=== PATIENT | male | born 1950 | race African-American/Black ===

== ENCOUNTER 2020-01-19 15:01 | Inpatient (IN) ==
[2020-01-19 16:07] LABS: Basophils % 0.3 % (0.0-0.8); Eosinophils # 0.1 10*3/uL (0.0-0.87); Hemoglobin 13.2 GM/DL (14.0-18.0); Immature Granulocytes % 0.3 %; Immature Granulocytes Absolute 0.03 #; Lymphocytes # 1.5 10*3/uL (1.4-4.0); Lymphocytes % 13.7 % (21.2-54.2); Mean Corpuscular HGB Conc 30.7 GM/DL (32-36); Mean Corpuscular Volume 89.2 FL (87-102); Mean Platelet Volume 10.9 FL (9.6-12.0); Monocytes % 5.8 % (1.7-12.7); Neutrophils % 78.9 % (38.7-73.9); Platelet Count 526 T/CUMM (130-400); Red Blood Count 4.82 MC/CUMM (3.8-5.5); White Blood Count 10.9 T/CUMM (4-12)
[2020-01-19 16:13] LABS: INR 1.1; PT Patient Result 11.9 SECS (9.8-11.9); Partial Thromboplastin Time 28.8 SECS (23.9-33.8)
[2020-01-19 16:27] LABS: Albumin 2.7 G/DL (3.4-5.0); Bilirubin,Total 0.4 MG/DL (0.2-1.0); Calcium 10.8 MG/DL (8.5-10.1); Total Protein 10.5 G/DL (6.4-8.3)
[2020-01-19 16:48] LABS: Apearance,Urine CLEAR (Clear); Bilirubin,Urine Negative (Negative); Blood, Urine Negative (Negative); Glucose,Urine (UA) Negative (Negative); Ketones,Urine Negative (Negative); Mucus,Urine Occasional /LPF (Occasional); Nitrite,Urine Negative (Negative); Protein,Urine 30 MG/DL; RBC,Urine 3 /HPF (0-4); Squamous Epithelial Cell,Urine Occasional /HPF (0-10); Urine Color Yellow (Yellow); Urine Specific Gravity 1.023 (1.001-1.035); Urine Urobilinogen < 2.0 EU/DL (0.2-1.0); WBC,Urine 1 /HPF (0-6)
[2020-01-19] MEDS ORDERED: SODIUM CHLORIDE 0.9% 1,000 ML IV STA (17:00)
[2020-01-19 22:22] LABS: Ferritin 620.3 ng/ml (26-388)
[2020-01-19] MEDS ORDERED: AZITHROMYCIN INJ 500 MG in SODIUM CHLORIDE 0.9% 250 ML IV STA (22:55)
[2020-01-19] MEDS ORDERED: methylPREDNISolone SOD SUC 125 MG/2 ML VIAL IV STA (22:55)
[2020-01-19 23:18] LABS: Albumin 2.7 G/DL (3.4-5.0); Bilirubin,Total 1.2 MG/DL (0.2-1.0); Calcium 10.1 MG/DL (8.5-10.1); Osmolality,Calculated 326.9 MOS/KG (273-304); Total Protein 9.8 G/DL (6.4-8.3)
[2020-01-19] MEDS ORDERED: SODIUM CHLORIDE 0.45% 1,000 ML IV SCH (23:45)
[2020-01-19] MEDS ORDERED: GLUCAGON 1 MG VIAL IM PRN (23:49)
[2020-01-19] MEDS ORDERED: DEXTROSE 10% 250 ML BAG IV PRN (23:55)
[2020-01-20] MEDS: cefTRIAXone 1,000 MG in SYRINGE 1 EACH IV SCH (04:50)
[2020-01-20 06:57] LABS: Basophils % 0.1 % (0.0-0.8); Eosinophils % 0.1 % (0.00-10.9); Hematocrit 46.4 VOL% (42.0-52.0); Hemoglobin 13.3 GM/DL (14.0-18.0); Immature Granulocytes % 0.6 %; Immature Granulocytes Absolute 0.07 #; Lymphocytes # 0.4 10*3/uL (1.4-4.0); Lymphocytes % 3.5 % (21.2-54.2); Mean Corpuscular HGB Conc 28.7 GM/DL (32-36); Mean Corpuscular Volume 96.1 FL (87-102); Mean Platelet Volume 11.7 FL (9.6-12.0); Monocytes % 0.8 % (1.7-12.7); Neutrophils % 94.9 % (38.7-73.9); Platelet Count 385 T/CUMM (130-400); Red Blood Count 4.83 MC/CUMM (3.8-5.5); Red Cell Distribution Width 14.4 % (9.3-17.3); White Blood Count 11.2 T/CUMM (4-12)
[2020-01-20 07:10] LABS: Band Neutrophils 1 % (0-10); Hypochromasia 1+; Lymphocytes 4 % (20-55); Segmented Neutrophils 93 % (50-85); Total Cells Counted 100
[2020-01-20 07:11] LABS: Albumin 2.6 G/DL (3.4-5.0); Bilirubin,Total 0.4 MG/DL (0.2-1.0); Calcium 9.6 MG/DL (8.5-10.1); Ferritin 513.8 ng/ml (26-388); Macrocytosis Slight; Total Protein 9.4 G/DL (6.4-8.3)
[2020-01-20] MEDS: DEXTROSE 5% 1,000 ML IV SCH ×2 (09:44→20:50)
[2020-01-20] MEDS: ENOXAPARIN 40 MG/0.4 ML SYRINGE SUBCUT SCH (14:30)
[2020-01-20] MEDS: SCOPOLAMINE 1.5 MG PATCH TRANSDERM SCH (14:55)
[2020-01-20] MEDS: AZITHROMYCIN INJ 500 MG in SODIUM CHLORIDE 0.9% 250 ML IV SCH (20:50)
[2020-01-21] MEDS ORDERED: FUROSEMIDE 20 MG/2 ML VIAL IV ONE (02:53)
[2020-01-21] MEDS: cefTRIAXone 1,000 MG in SYRINGE 1 EACH IV SCH (03:55)
[2020-01-21 05:50] LABS: Prealbumin 20.2 MG/DL (20-40)
[2020-01-21 08:11] LABS: Hepatitis B Core IgM Quant 0.07 Index; Hepatitis B Surface Ag Quant 0.14 Index; Hepatitis B Surface Ag Result Negative (Negative); Hepatitis C Virus Ab Quant 0.07 Index; Hepatitis C Virus Ab Result Negative (Negative)
[2020-01-21] MEDS: ENOXAPARIN 40 MG/0.4 ML SYRINGE SUBCUT SCH (08:56)
[2020-01-21] MEDS ORDERED: MAGNESIUM HYDROXIDE SUSP 30 ML UDCUP PO ONE (12:00)
[2020-01-21] MEDS: AZITHROMYCIN INJ 500 MG in SODIUM CHLORIDE 0.9% 250 ML IV SCH (20:14)
[2020-01-21] MEDS: SIMVASTATIN 40 MG TABLET PEG SCH (20:15)
[2020-01-22] MEDS: cefTRIAXone 1,000 MG in SYRINGE 1 EACH IV SCH (03:16)
[2020-01-22 05:37] LABS: Calcium 9.6 MG/DL (8.5-10.1); Osmolality,Calculated 304.7 MOS/KG (273-304); Prealbumin 16.7 MG/DL (20-40)
[2020-01-22 05:40] LABS: Risk Ratio 2.22; VLDL CHOLESTEROL 12.4 MG/DL
[2020-01-22] MEDS: ENOXAPARIN 40 MG/0.4 ML SYRINGE SUBCUT SCH (08:41)
[2020-01-22] MEDS ORDERED: FENOFIBRATE 145 MG TABLET PER TUBE SCH (09:00)
[2020-01-22] MEDS: carvediloL 6.25 MG TABLET PO SCH ×2 (11:45→20:50)
[2020-01-22] MEDS: LEVOFLOXACIN INJ 750 MG in PREMIX 1 EACH IV SCH (17:33)
[2020-01-22] MEDS: CHLORHEXIDINE 0.12% ORAL RINSE 60 ML BOTTLE SWISH/SPIT SCH ×2 (17:33→20:50)
[2020-01-22] MEDS: SODIUM CHLORIDE 0.45% 1,000 ML IV SCH (17:36)
[2020-01-22] MEDS: ACETAMINOPHEN 325 MG TABLET PO SCH (20:50)
[2020-01-22] MEDS: SIMVASTATIN 40 MG TABLET PEG SCH (20:50)
[2020-01-22] MEDS: PIPERACILLIN/TAZOBACTAM 3,375 MG in SODIUM CHLORIDE 0.9% 100 ML IV SCH (21:55)
[2020-01-23] MEDS: PIPERACILLIN/TAZOBACTAM 3,375 MG in SODIUM CHLORIDE 0.9% 100 ML IV SCH ×3 (05:55→22:30)
[2020-01-23 06:23] LABS: Basophils # 0.1 10*3/uL (0.0-0.2); Basophils % 0.2 % (0.0-0.8); Eosinophils # 0.1 10*3/uL (0.0-0.87); Eosinophils % 0.3 % (0.00-10.9); Hematocrit 35.1 VOL% (42.0-52.0); Hemoglobin 10.8 GM/DL (14.0-18.0); Immature Granulocytes Absolute 0.31 #; Lymphocytes # 0.5 10*3/uL (1.4-4.0); Lymphocytes % 1.6 % (21.2-54.2); Mean Corpuscular HGB Conc 30.8 GM/DL (32-36); Mean Corpuscular Volume 89.1 FL (87-102); Mean Platelet Volume 11.9 FL (9.6-12.0); Monocytes % 1.1 % (1.7-12.7); Neutrophils % 95.8 % (38.7-73.9); Platelet Count 323 T/CUMM (130-400); Red Blood Count 3.94 MC/CUMM (3.8-5.5); Red Cell Distribution Width 14.1 % (9.3-17.3); White Blood Count 29.8 T/CUMM (4-12)
[2020-01-23 06:55] LABS: Band Neutrophils 1 % (0-10); Eosinophils 1 % (0-10); Hypochromasia 1+; Lymphocytes 3 % (20-55); Platelet Estimate Adequate; Segmented Neutrophils 93 % (50-85); Total Cells Counted 100
[2020-01-23 06:56] LABS: Macrocytosis Slight
[2020-01-23 07:12] LABS: Alanine Aminotransferase 106 U/L (16-61); Albumin 1.8 G/DL (3.4-5.0); Alkaline Phosphatase 83 U/L (45-117); Aspartate Amino Transferase 60 U/L (0-37); Bilirubin,Total < 0.39 MG/DL (0.2-1.0); Blood Urea Nitrogen 44 MG/DL (7-18); Calcium 10.1 MG/DL (8.5-10.1); Estimated Glom Filtration Rate 70 ML/MIN; Glucose 125 MG/DL (74-106); Osmolality,Calculated 290.4 MOS/KG (273-304); Total Protein 8.1 G/DL (6.4-8.3)
[2020-01-23] MEDS: ACETAMINOPHEN 325 MG TABLET PO SCH ×2 (08:48→20:54)
[2020-01-23] MEDS: carvediloL 6.25 MG TABLET PO SCH ×2 (08:48→20:54)
[2020-01-23] MEDS: CHOLECALCIFEROL 1,000 UNIT TABLET PER TUBE SCH (08:49)
[2020-01-23] MEDS: CHLORHEXIDINE 0.12% ORAL RINSE 60 ML BOTTLE SWISH/SPIT SCH ×2 (08:49→20:54)
[2020-01-23] MEDS: ENOXAPARIN 40 MG/0.4 ML SYRINGE SUBCUT SCH (08:49)
[2020-01-23] MEDS: VANCOMYCIN INJ 750 MG in SODIUM CHLORIDE 0.9% 250 ML IV SCH ×2 (10:13→20:54)
[2020-01-23 11:46] LABS: Apearance,Urine CLEAR (Clear); Bilirubin,Urine Negative (Negative); Blood, Urine Negative (Negative); Glucose,Urine (UA) Negative (Negative); Ketones,Urine Negative (Negative); Nitrite,Urine Negative (Negative); Protein,Urine 30 MG/DL; RBC,Urine 3 /HPF (0-4); Squamous Epithelial Cell,Urine Occasional /HPF (0-10); Urine Color Yellow (Yellow); Urine Specific Gravity 1.026 (1.001-1.035); Urine Urobilinogen < 2.0 EU/DL (0.2-1.0); WBC,Urine 1 /HPF (0-6)
[2020-01-23] MEDS: SCOPOLAMINE 1.5 MG PATCH TRANSDERM SCH (12:17)
[2020-01-23] MEDS: GLYCOPYRROLATE 1 MG TABLET PEG SCH ×2 (15:49→20:54)
[2020-01-23] MEDS: LEVOFLOXACIN INJ 750 MG in PREMIX 1 EACH IV SCH (17:55)
[2020-01-24] MEDS: PIPERACILLIN/TAZOBACTAM 3,375 MG in SODIUM CHLORIDE 0.9% 100 ML IV SCH ×3 (06:00→22:53)
[2020-01-24 06:12] LABS: Basophils # 0.1 10*3/uL (0.0-0.2); Basophils % 0.2 % (0.0-0.8); Eosinophils # 0.4 10*3/uL (0.0-0.87); Eosinophils % 1.7 % (0.00-10.9); Hematocrit 30.5 VOL% (42.0-52.0); Hemoglobin 9.4 GM/DL (14.0-18.0); Immature Granulocytes % 0.7 %; Immature Granulocytes Absolute 0.16 #; Lymphocytes # 0.5 10*3/uL (1.4-4.0); Lymphocytes % 1.8 % (21.2-54.2); Mean Corpuscular HGB Conc 30.8 GM/DL (32-36); Mean Corpuscular Volume 88.2 FL (87-102); Mean Platelet Volume 12.3 FL (9.6-12.0); Monocytes % 1.3 % (1.7-12.7); Neutrophils % 94.3 % (38.7-73.9); Platelet Count 330 T/CUMM (130-400); Red Blood Count 3.46 MC/CUMM (3.8-5.5); White Blood Count 24.4 T/CUMM (4-12)
[2020-01-24 06:53] LABS: Eosinophils 1 % (0-10); Hypochromasia 1+; Lymphocytes 2 % (20-55); Platelet Estimate Adequate; Segmented Neutrophils 96 % (50-85); Total Cells Counted 100
[2020-01-24 06:54] LABS: Macrocytosis Slight
[2020-01-24 07:21] LABS: Alanine Aminotransferase 101 U/L (16-61); Albumin 1.5 G/DL (3.4-5.0); Alkaline Phosphatase 96 U/L (45-117); Aspartate Amino Transferase 91 U/L (0-37); Bilirubin,Total < 0.39 MG/DL (0.2-1.0); Blood Urea Nitrogen 34 MG/DL (7-18); Calcium 9.5 MG/DL (8.5-10.1); Estimated Glom Filtration Rate 87 ML/MIN; Glucose 126 MG/DL (74-106); Osmolality,Calculated 286.5 MOS/KG (273-304); Total Protein 7.2 G/DL (6.4-8.3)
[2020-01-24] MEDS: ACETAMINOPHEN 325 MG TABLET PO SCH ×2 (08:38→20:05)
[2020-01-24] MEDS: CHLORHEXIDINE 0.12% ORAL RINSE 60 ML BOTTLE SWISH/SPIT SCH ×2 (08:39→20:05)
[2020-01-24] MEDS: ENOXAPARIN 40 MG/0.4 ML SYRINGE SUBCUT SCH (08:39)
[2020-01-24] MEDS: GLYCOPYRROLATE 1 MG TABLET PEG SCH ×3 (08:39→20:05)
[2020-01-24] MEDS: CHOLECALCIFEROL 1,000 UNIT TABLET PER TUBE SCH (08:39)
[2020-01-24] MEDS: VANCOMYCIN INJ 750 MG in SODIUM CHLORIDE 0.9% 250 ML IV SCH ×2 (11:40→20:05)
[2020-01-24] MEDS: carvediloL 6.25 MG TABLET PO SCH ×2 (12:03→20:05)
[2020-01-24] MEDS: SODIUM CHLORIDE 0.45% 1,000 ML IV SCH ×2 (15:08→15:13)
[2020-01-24] MEDS: LEVOFLOXACIN INJ 750 MG in PREMIX 1 EACH IV SCH (18:12)
[2020-01-25] MEDS: PIPERACILLIN/TAZOBACTAM 3,375 MG in SODIUM CHLORIDE 0.9% 100 ML IV SCH ×3 (06:30→22:40)
[2020-01-25 06:34] LABS: Basophils % 0.1 % (0.0-0.8); Eosinophils # 0.4 10*3/uL (0.0-0.87); Eosinophils % 2.1 % (0.00-10.9); Hematocrit 29.1 VOL% (42.0-52.0); Hemoglobin 9.1 GM/DL (14.0-18.0); Immature Granulocytes % 0.6 %; Lymphocytes # 0.5 10*3/uL (1.4-4.0); Lymphocytes % 3.2 % (21.2-54.2); Mean Corpuscular HGB Conc 31.3 GM/DL (32-36); Mean Corpuscular Volume 87.7 FL (87-102); Mean Platelet Volume 11.7 FL (9.6-12.0); Monocytes % 3.1 % (1.7-12.7); Neutrophils % 90.9 % (38.7-73.9); Platelet Count 378 T/CUMM (130-400); Red Blood Count 3.32 MC/CUMM (3.8-5.5); Red Cell Distribution Width 13.9 % (9.3-17.3); White Blood Count 16.5 T/CUMM (4-12)
[2020-01-25 07:01] LABS: Albumin 1.3 G/DL (3.4-5.0); Bilirubin,Total 0.4 MG/DL (0.2-1.0); Calcium 9.3 MG/DL (8.5-10.1); Osmolality,Calculated 281.7 MOS/KG (273-304); Total Protein 6.9 G/DL (6.4-8.3)
[2020-01-25 07:48] LABS: Eosinophils 2 % (0-10); Hypochromasia 1+; Lymphocytes 2 % (20-55); Platelet Estimate Adequate; Segmented Neutrophils 94 % (50-85); Total Cells Counted 100
[2020-01-25 07:49] LABS: Macrocytosis Slight
[2020-01-25] MEDS: ACETAMINOPHEN 325 MG TABLET PO SCH ×2 (08:48→20:17)
[2020-01-25] MEDS: CHOLECALCIFEROL 1,000 UNIT TABLET PER TUBE SCH (08:49)
[2020-01-25] MEDS: carvediloL 6.25 MG TABLET PO SCH ×2 (08:49→20:12)
[2020-01-25] MEDS: GLYCOPYRROLATE 1 MG TABLET PEG SCH ×3 (08:51→20:12)
[2020-01-25] MEDS: ENOXAPARIN 40 MG/0.4 ML SYRINGE SUBCUT SCH (08:51)
[2020-01-25] MEDS: VANCOMYCIN INJ 750 MG in SODIUM CHLORIDE 0.9% 250 ML IV SCH ×2 (09:43→20:40)
[2020-01-25] MEDS: CHLORHEXIDINE 0.12% ORAL RINSE 60 ML BOTTLE SWISH/SPIT SCH ×2 (10:32→20:12)
[2020-01-25] MEDS: SODIUM CHLORIDE 0.45% 1,000 ML IV SCH (11:19)
[2020-01-25] MEDS: LEVOFLOXACIN INJ 750 MG in PREMIX 1 EACH IV SCH (19:04)
[2020-01-26] MEDS: PIPERACILLIN/TAZOBACTAM 3,375 MG in SODIUM CHLORIDE 0.9% 100 ML IV SCH (05:24)
[2020-01-26 06:15] LABS: Basophils % 0.2 % (0.0-0.8); Eosinophils # 0.4 10*3/uL (0.0-0.87); Eosinophils % 3.3 % (0.00-10.9); Hematocrit 31.3 VOL% (42.0-52.0); Hemoglobin 9.4 GM/DL (14.0-18.0); Immature Granulocytes % 0.5 %; Immature Granulocytes Absolute 0.06 #; Lymphocytes # 0.7 10*3/uL (1.4-4.0); Lymphocytes % 6.3 % (21.2-54.2); Mean Corpuscular Volume 89.4 FL (87-102); Mean Platelet Volume 12.3 FL (9.6-12.0); Monocytes % 5.4 % (1.7-12.7); Neutrophils % 84.3 % (38.7-73.9); Platelet Count 262 T/CUMM (130-400); Red Cell Distribution Width 14.1 % (9.3-17.3); White Blood Count 11.2 T/CUMM (4-12)
[2020-01-26 06:42] LABS: Calcium 9.2 MG/DL (8.5-10.1); Osmolality,Calculated 274.1 MOS/KG (273-304)
[2020-01-26 08:12] LABS: Alanine Aminotransferase 123 U/L (16-61); Albumin 1.2 G/DL (3.4-5.0); Alkaline Phosphatase 95 U/L (45-117); Aspartate Amino Transferase 132 U/L (0-37); Bilirubin,Total < 0.39 MG/DL (0.2-1.0); Blood Urea Nitrogen 23 MG/DL (7-18); Calcium 9.1 MG/DL (8.5-10.1); Estimated Glom Filtration Rate 105 ML/MIN; Glucose 110 MG/DL (74-106); Osmolality,Calculated 268.5 MOS/KG (273-304); Total Protein 6.7 G/DL (6.4-8.3)
[2020-01-26] MEDS: GLYCOPYRROLATE 1 MG TABLET PEG SCH (09:05)
[2020-01-26] MEDS: ACETAMINOPHEN 325 MG TABLET PO SCH (09:05)
[2020-01-26] MEDS: carvediloL 6.25 MG TABLET PO SCH (09:06)
[2020-01-26] MEDS: ENOXAPARIN 40 MG/0.4 ML SYRINGE SUBCUT SCH (09:06)
[2020-01-26] MEDS: CHLORHEXIDINE 0.12% ORAL RINSE 60 ML BOTTLE SWISH/SPIT SCH (09:06)
[2020-01-26] MEDS: VANCOMYCIN INJ 750 MG in SODIUM CHLORIDE 0.9% 250 ML IV SCH (09:10)
[2020-01-26] MEDS: CHOLECALCIFEROL 1,000 UNIT TABLET PER TUBE SCH (09:24)
[2020-01-26] MEDS: SCOPOLAMINE 1.5 MG PATCH TRANSDERM SCH (11:31)
[2020-01-26 11:49] VITALS: BP 99/53
== END 2020-01-26 16:00 | DRG 682 ==
LOC: EDBD → EDUNIT# → N.ED 15:01 → N.EDINP 01-20 00:01 → SUATTDRO 01-20 00:01 → N.2E 01-20 01:04 → N.TELEN 01-24 13:58
PROVIDERS: ADMIT Internal Medicine; ATTEND Family Medicine

== ENCOUNTER 2020-02-07 06:44 | Inpatient (IN) ==
[2020-02-07] MEDS ORDERED: ACETAMINOPHEN 650 MG SUPP RECTAL STA (06:54)
[2020-02-07] MEDS ORDERED: PIPERACILLIN/TAZOBACTAM 3,375 MG in SODIUM CHLORIDE 0.9% 100 ML IV STA (06:54)
[2020-02-07] MEDS ORDERED: ALBUTEROL 2.5 MG/3 ML NEB RESP TX STA (06:54)
[2020-02-07] MEDS ORDERED: SODIUM CHLORIDE 0.9% 1,000 ML IV STA ×2 (07:03→07:10)
[2020-02-07 07:16] LABS: INR 1.1; PT Patient Result 11.8 SECS (9.8-11.9)
[2020-02-07 07:19] LABS: Hematocrit 22.5 VOL% (42.0-52.0); Hemoglobin 7.2 GM/DL (14.0-18.0); Immature Granulocytes % 0.7 %; Immature Granulocytes Absolute 0.04 #; Lymphocytes # 0.1 10*3/uL (1.4-4.0); Lymphocytes % 2.4 % (21.2-54.2); Mean Corpuscular Volume 84.6 FL (87-102); Mean Platelet Volume 8.8 FL (9.6-12.0); Monocytes % 6.3 % (1.7-12.7); Neutrophils % 90.6 % (38.7-73.9); Platelet Count 530 T/CUMM (130-400); Red Blood Count 2.66 MC/CUMM (3.8-5.5); Red Cell Distribution Width 13.8 % (9.3-17.3); White Blood Count 5.8 T/CUMM (4-12)
[2020-02-07 07:25] LABS: Albumin 1.2 G/DL (3.4-5.0); Bilirubin,Total 0.5 MG/DL (0.2-1.0); Calcium 8.3 MG/DL (8.5-10.1); Ferritin 1212.8 ng/ml (26-388); Osmolality,Calculated 266.8 MOS/KG (273-304); Total Protein 6.7 G/DL (6.4-8.3)
[2020-02-07 08:27] LABS: Band Neutrophils 4 % (0-10); Eosinophils 1 % (0-10); Lymphocytes 3 % (20-55); Platelet Estimate Increased; Segmented Neutrophils 86 % (50-85); Total Cells Counted 100
[2020-02-07 08:28] LABS: Anisocytosis 1+; Hypochromasia 2+; Macrocytosis 1+
[2020-02-07] MEDS ORDERED: NOREPINEPHRINE 4 MG/4 ML VIAL IV ONE ×2 (08:29→08:31)
[2020-02-07] MEDS ORDERED: NOREPINEPHRINE 8 MG in SODIUM CHLORIDE 0.9% 242 ML IV PRN (08:31)
[2020-02-07] MEDS: NOREPINEPHRINE 16 MG in SODIUM CHLORIDE 0.9% 234 ML IV PRN ×2 (08:40→21:34)
[2020-02-07] MEDS ORDERED: DEXTROSE 10% 250 ML BAG IV PRN (10:23)
[2020-02-07] MEDS ORDERED: GLUCAGON 1 MG VIAL IM PRN (10:23)
[2020-02-07] MEDS ORDERED: ONDANSETRON 4 MG/2 ML VIAL IV PRN (10:23)
[2020-02-07] MEDS: SCOPOLAMINE 1.5 MG PATCH TRANSDERM SCH (11:00)
[2020-02-07] MEDS: DEXTROSE 5% NACL 0.9% 1,000 ML IV SCH ×2 (11:59→21:31)
[2020-02-07] MEDS: INSULIN LISPRO 100 UNIT/ML SUBCUT SCH ×2 (12:00→18:41)
[2020-02-07] MEDS: ENOXAPARIN 60 MG/0.6 ML SYRINGE SUBCUT SCH (13:00)
[2020-02-07] MEDS: HYDROXYCHLOROQUINE 200 MG TABLET PEG SCH ×2 (13:00→20:23)
[2020-02-07] MEDS: PIPERACILLIN/TAZOBACTAM 3,375 MG in SODIUM CHLORIDE 0.9% 100 ML IV SCH (15:15)
[2020-02-07 21:27] LABS: Apearance,Urine CLOUDY (Clear); Bilirubin,Urine Negative (Negative); Blood, Urine Moderate mg/dL (Negative); Glucose,Urine (UA) Negative (Negative); Ketones,Urine Negative (Negative); Mucus,Urine Occasional /LPF (Occasional); Nitrite,Urine Negative (Negative); Protein,Urine Negative; RBC,Urine 5 /HPF (0-4); Squamous Epithelial Cell,Urine Occasional /HPF (0-10); Urine Color Yellow (Yellow); Urine Specific Gravity 1.026 (1.001-1.035); Urine Urobilinogen < 2.0 EU/DL (0.2-1.0); WBC,Urine 1 /HPF (0-6)
[2020-02-08] MEDS: INSULIN LISPRO 100 UNIT/ML SUBCUT SCH ×4 (00:16→18:21)
[2020-02-08] MEDS: PIPERACILLIN/TAZOBACTAM 3,375 MG in SODIUM CHLORIDE 0.9% 100 ML IV SCH ×3 (00:16→16:26)
[2020-02-08] MEDS: ENOXAPARIN 60 MG/0.6 ML SYRINGE SUBCUT SCH ×2 (00:16→09:45)
[2020-02-08 04:13] LABS: ABG Base Excess 1.8 MMOL/L (-2.5-2.5); ABG HCO3 26.1 MMOL/L (20-26); ABG Oxygen Saturation 99.3 % (95-100); ABG PCO2 43.4 MM HG (35-48); ABG PH 7.399 (7.35-7.45); ABG TCO2 25.5 MMOL/L (23-27); Allen Test Positive
[2020-02-08 04:38] LABS: Basophils % 0.1 % (0.0-0.8); Hematocrit 24.4 VOL% (42.0-52.0); Hemoglobin 7.4 GM/DL (14.0-18.0); Immature Granulocytes % 0.6 %; Immature Granulocytes Absolute 0.05 #; Lymphocytes # 0.4 10*3/uL (1.4-4.0); Lymphocytes % 4.4 % (21.2-54.2); Mean Corpuscular HGB Conc 30.3 GM/DL (32-36); Mean Corpuscular Volume 87.5 FL (87-102); Mean Platelet Volume 8.7 FL (9.6-12.0); Monocytes % 4.2 % (1.7-12.7); Neutrophils % 90.7 % (38.7-73.9); Platelet Count 452 T/CUMM (130-400); Red Blood Count 2.79 MC/CUMM (3.8-5.5)
[2020-02-08 05:04] LABS: Band Neutrophils 3 % (0-10); Lymphocytes 3 % (20-55); Segmented Neutrophils 89 % (50-85); Total Cells Counted 100
[2020-02-08 05:05] LABS: Hypochromasia 1+; Platelet Estimate Adequate
[2020-02-08 05:08] LABS: Calcium 8.5 MG/DL (8.5-10.1)
[2020-02-08 05:10] LABS: Troponin I 7.97 NG/ML (0.00-0.045)
[2020-02-08] MEDS: DEXTROSE 5% NACL 0.9% 1,000 ML IV SCH ×4 (05:24→21:25)
[2020-02-08] MEDS ORDERED: SODIUM CHLORIDE 0.9% 100 ML IV ONE (07:49)
[2020-02-08] MEDS: ASPIRIN CHEW 81 MG TABLET PO SCH (09:45)
[2020-02-08] MEDS: HYDROXYCHLOROQUINE 200 MG TABLET PO SCH ×2 (09:45→21:56)
[2020-02-08] MEDS: NOREPINEPHRINE 16 MG in SODIUM CHLORIDE 0.9% 234 ML IV PRN ×2 (10:00→21:40)
[2020-02-08] MEDS ORDERED: SODIUM CHLORIDE 0.9% 1,000 ML IV PRN (10:04)
[2020-02-08] MEDS ORDERED: NON-FORMULARY MEDICATION (Pravastatin 80 MG) PEG SCH (20:00)
[2020-02-09] MEDS: INSULIN LISPRO 100 UNIT/ML SUBCUT SCH ×4 (02:09→17:10)
[2020-02-09] MEDS: ENOXAPARIN 60 MG/0.6 ML SYRINGE SUBCUT SCH ×3 (02:28→22:54)
[2020-02-09] MEDS: PIPERACILLIN/TAZOBACTAM 3,375 MG in SODIUM CHLORIDE 0.9% 100 ML IV SCH ×4 (02:28→23:03)
[2020-02-09] MEDS: DEXTROSE 5% NACL 0.9% 1,000 ML IV SCH (02:30)
[2020-02-09 06:43] LABS: Calcium 8.2 MG/DL (8.5-10.1); Osmolality,Calculated 281.3 MOS/KG (273-304)
[2020-02-09 07:04] LABS: Basophils % 0.1 % (0.0-0.8); Hematocrit 27.4 VOL% (42.0-52.0); Hemoglobin 8.3 GM/DL (14.0-18.0); Immature Granulocytes % 0.8 %; Immature Granulocytes Absolute 0.09 #; Lymphocytes # 1.3 10*3/uL (1.4-4.0); Lymphocytes % 11.3 % (21.2-54.2); Mean Corpuscular HGB Conc 30.3 GM/DL (32-36); Mean Corpuscular Volume 88.7 FL (87-102); Mean Platelet Volume 9.2 FL (9.6-12.0); Monocytes % 5.4 % (1.7-12.7); Neutrophils % 82.4 % (38.7-73.9); Platelet Count 398 T/CUMM (130-400); Red Blood Count 3.09 MC/CUMM (3.8-5.5); Red Cell Distribution Width 14.6 % (9.3-17.3); White Blood Count 11.1 T/CUMM (4-12)
[2020-02-09] MEDS: ASPIRIN CHEW 81 MG TABLET PO SCH (08:07)
[2020-02-09] MEDS: HYDROXYCHLOROQUINE 200 MG TABLET PO SCH ×2 (08:07→21:40)
[2020-02-09] MEDS: DEXT 5% NACL 0.9% KCL 20 MEQ 20 MEQ/1,000 ML BAG IV SCH (08:53)
[2020-02-09] MEDS: NOREPINEPHRINE 16 MG in SODIUM CHLORIDE 0.9% 234 ML IV PRN (09:02)
[2020-02-09] MEDS ORDERED: FUROSEMIDE 20 MG/2 ML VIAL IV ONE (15:06)
[2020-02-10] MEDS: INSULIN LISPRO 100 UNIT/ML SUBCUT SCH ×4 (00:22→18:27)
[2020-02-10] MEDS: DEXT 5% NACL 0.9% KCL 20 MEQ 20 MEQ/1,000 ML BAG IV SCH (03:19)
[2020-02-10 06:10] LABS: Hematocrit 23.4 VOL% (42.0-52.0); Hemoglobin 7.3 GM/DL (14.0-18.0); Immature Granulocytes % 0.7 %; Immature Granulocytes Absolute 0.04 #; Lymphocytes # 0.4 10*3/uL (1.4-4.0); Lymphocytes % 6.8 % (21.2-54.2); Mean Corpuscular HGB Conc 31.2 GM/DL (32-36); Mean Corpuscular Volume 85.1 FL (87-102); Mean Platelet Volume 9.5 FL (9.6-12.0); Neutrophils % 90.5 % (38.7-73.9); Platelet Count 319 T/CUMM (130-400); Red Blood Count 2.75 MC/CUMM (3.8-5.5); Red Cell Distribution Width 14.6 % (9.3-17.3); White Blood Count 5.6 T/CUMM (4-12)
[2020-02-10 06:28] LABS: Calcium 7.7 MG/DL (8.5-10.1)
[2020-02-10 06:32] LABS: Hypochromasia 1+
[2020-02-10 06:33] LABS: Microcytosis Slight; Platelet Estimate Normal; Target Cells Slight
[2020-02-10] MEDS: NOREPINEPHRINE 16 MG in SODIUM CHLORIDE 0.9% 234 ML IV PRN (07:34)
[2020-02-10] MEDS: PIPERACILLIN/TAZOBACTAM 3,375 MG in SODIUM CHLORIDE 0.9% 100 ML IV SCH ×2 (07:34→16:28)
[2020-02-10] MEDS: HYDROXYCHLOROQUINE 200 MG TABLET PO SCH ×2 (09:48→23:56)
[2020-02-10] MEDS: ASPIRIN CHEW 81 MG TABLET PO SCH (09:48)
[2020-02-10] MEDS ORDERED: MAGNESIUM SULF RIDER 4 GM in PREMIX 1 EACH IV PRN (10:43)
[2020-02-10] MEDS ORDERED: MAGNESIUM SULF RIDER 2 GM in PREMIX 1 EACH IV PRN (10:43)
[2020-02-10] MEDS: SCOPOLAMINE 1.5 MG PATCH TRANSDERM SCH (12:03)
[2020-02-10] MEDS: ENOXAPARIN 60 MG/0.6 ML SYRINGE SUBCUT SCH ×2 (12:18→23:56)
[2020-02-10] MEDS: POTASSIUM CHLORIDE RIDER 10 MEQ in PREMIX 1 EACH IV PRN ×3 (13:31→16:39)
[2020-02-11] MEDS: INSULIN LISPRO 100 UNIT/ML SUBCUT SCH ×4 (00:10→17:47)
[2020-02-11] MEDS: PIPERACILLIN/TAZOBACTAM 3,375 MG in SODIUM CHLORIDE 0.9% 100 ML IV SCH ×3 (00:17→15:36)
[2020-02-11 07:08] LABS: Calcium 8.3 MG/DL (8.5-10.1); Osmolality,Calculated 281.1 MOS/KG (273-304)
[2020-02-11 07:52] LABS: Blood Urea Nitrogen 13 MG/DL (7-18); Calcium 7.7 MG/DL (8.5-10.1); Estimated Glom Filtration Rate 114 ML/MIN; Glucose 87 MG/DL (74-106); Osmolality,Calculated 284.8 MOS/KG (273-304); Prealbumin < 3.0 MG/DL (20-40)
[2020-02-11] MEDS: HYDROXYCHLOROQUINE 200 MG TABLET PO SCH ×2 (10:58→23:45)
[2020-02-11] MEDS: MULTIVITAMIN (CENTRUM) TABLET PEG SCH (10:58)
[2020-02-11] MEDS: DEXT 5% NACL 0.9% KCL 20 MEQ 20 MEQ/1,000 ML BAG IV SCH ×2 (10:58→20:00)
[2020-02-11] MEDS: CHOLECALCIFEROL 1,000 UNIT TABLET PEG SCH (10:58)
[2020-02-11] MEDS: ASPIRIN CHEW 81 MG TABLET PO SCH (10:58)
[2020-02-11] MEDS: ENOXAPARIN 60 MG/0.6 ML SYRINGE SUBCUT SCH ×2 (10:58→23:46)
[2020-02-11 15:03] LABS: Hematocrit 24.8 VOL% (42.0-52.0); Hemoglobin 7.5 GM/DL (14.0-18.0); Immature Granulocytes % 0.4 %; Immature Granulocytes Absolute 0.02 #; Lymphocytes # 0.5 10*3/uL (1.4-4.0); Lymphocytes % 11.6 % (21.2-54.2); Mean Corpuscular HGB Conc 30.2 GM/DL (32-36); Mean Corpuscular Volume 87.9 FL (87-102); Mean Platelet Volume 9.7 FL (9.6-12.0); Monocytes % 2.4 % (1.7-12.7); Neutrophils % 85.6 % (38.7-73.9); Platelet Count 280 T/CUMM (130-400); Red Blood Count 2.82 MC/CUMM (3.8-5.5); Red Cell Distribution Width 14.7 % (9.3-17.3); White Blood Count 4.6 T/CUMM (4-12)
[2020-02-11 17:53] LABS: Band Neutrophils 2 % (0-10); Eosinophils 1 % (0-10); Lymphocytes 11 % (20-55); Platelet Estimate Adequate; Segmented Neutrophils 85 % (50-85); Total Cells Counted 100
[2020-02-12] MEDS: PIPERACILLIN/TAZOBACTAM 3,375 MG in SODIUM CHLORIDE 0.9% 100 ML IV SCH ×3 (00:31→16:07)
[2020-02-12] MEDS: INSULIN LISPRO 100 UNIT/ML SUBCUT SCH ×4 (00:40→17:55)
[2020-02-12] MEDS ORDERED: SODIUM BICARBONATE 50 MEQ/50 ML SYRINGE IV ONE (04:40)
[2020-02-12] MEDS ORDERED: ATROPINE 1 MG/10 ML SYRINGE ONE (04:40)
[2020-02-12] MEDS ORDERED: EPINEPHrine 1 MG/10 ML SYRINGE ONE (04:40)
[2020-02-12] MEDS ORDERED: CALCIUM CHLORIDE 1,000 MG/10 ML SYRINGE IV ONE (04:40)
[2020-02-12] MEDS ORDERED: PHENYLEPHRINE DRIP 40 MG/250 ML PREMIX IV ONE (04:55)
[2020-02-12] MEDS ORDERED: PHENYLEPHRINE DRIP 40 MG/250 ML PREMIX IV PRN (04:58)
[2020-02-12] MEDS ORDERED: NOREPINEPHRINE 4 MG/4 ML VIAL IV ONE (05:01)
[2020-02-12 05:23] LABS: ABG Base Excess -3.4 MMOL/L (-2.5-2.5); ABG HCO3 21.3 MMOL/L (20-26); ABG Oxygen Saturation 77.5 % (95-100); ABG PO2 58.2 MM HG (80-95); ABG TCO2 24.9 MMOL/L (23-27); Allen Test Positive; Pt O2 Delivery Device Ventilator
[2020-02-12 05:25] LABS: ABG PCO2 69.8 MM HG (35-48); ABG PH 7.176 (7.35-7.45)
[2020-02-12 05:45] LABS: Basophils % 0.1 % (0.0-0.8); Eosinophils % 0.1 % (0.00-10.9); Hematocrit 19.6 VOL% (42.0-52.0); Immature Granulocytes % 5.7 %; Immature Granulocytes Absolute 0.62 #; Lymphocytes % 18.1 % (21.2-54.2); Mean Corpuscular HGB Conc 28.6 GM/DL (32-36); Mean Corpuscular Volume 91.6 FL (87-102); Mean Platelet Volume 9.8 FL (9.6-12.0); Monocytes % 1.4 % (1.7-12.7); Neutrophils % 74.6 % (38.7-73.9); Platelet Count 368 T/CUMM (130-400); Red Blood Count 2.14 MC/CUMM (3.8-5.5); Red Cell Distribution Width 14.9 % (9.3-17.3); White Blood Count 10.9 T/CUMM (4-12)
[2020-02-12 05:51] LABS: Hemoglobin 5.6 GM/DL (14.0-18.0)
[2020-02-12 06:06] LABS: Alanine Aminotransferase 87 U/L (16-61); Albumin 0.8 G/DL (3.4-5.0); Alkaline Phosphatase 88 U/L (45-117); Aspartate Amino Transferase 284 U/L (0-37); Blood Urea Nitrogen 13 MG/DL (7-18); Estimated Glom Filtration Rate 85 ML/MIN; Glucose 118 MG/DL (74-106); Osmolality,Calculated 288.7 MOS/KG (273-304); Total Protein 5.7 G/DL (6.4-8.3)
[2020-02-12] MEDS: NOREPINEPHRINE 8 MG in SODIUM CHLORIDE 0.9% 242 ML IV PRN ×3 (06:07→23:01)
[2020-02-12] MEDS ORDERED: LACTATED RINGERS 2,000 ML IV ONE (06:08)
[2020-02-12 06:14] LABS: Band Neutrophils 2 % (0-10); Hypochromasia 2+; Lymphocytes 10 % (20-55); Microcytosis 1+; Platelet Estimate Adequate; Segmented Neutrophils 86 % (50-85); Total Cells Counted 100
[2020-02-12] MEDS: MIDAZOLAM 100 MG in SODIUM CHLORIDE 0.9% 80 ML IV PRN (06:36)
[2020-02-12] MEDS: MULTIVITAMIN (CENTRUM) TABLET PEG SCH (09:05)
[2020-02-12] MEDS: ASPIRIN CHEW 81 MG TABLET PO SCH (09:05)
[2020-02-12] MEDS: CHOLECALCIFEROL 1,000 UNIT TABLET PEG SCH (09:05)
[2020-02-12] MEDS: LINEZOLID INJ 600 MG in PREMIX 1 EACH IV SCH ×2 (09:05→20:19)
[2020-02-12] MEDS: ENOXAPARIN 60 MG/0.6 ML SYRINGE SUBCUT SCH ×2 (12:21→22:10)
[2020-02-12] MEDS: DEXT 5% NACL 0.9% KCL 20 MEQ 20 MEQ/1,000 ML BAG IV SCH ×2 (15:07→15:14)
[2020-02-13] MEDS: INSULIN LISPRO 100 UNIT/ML SUBCUT SCH ×4 (00:06→17:46)
[2020-02-13] MEDS: PIPERACILLIN/TAZOBACTAM 3,375 MG in SODIUM CHLORIDE 0.9% 100 ML IV SCH ×4 (00:08→23:50)
[2020-02-13 03:47] LABS: Basophils % 0.1 % (0.0-0.8); Eosinophils % 0.1 % (0.00-10.9); Hematocrit 29.6 VOL% (42.0-52.0); Hemoglobin 9.6 GM/DL (14.0-18.0); Immature Granulocytes % 0.7 %; Immature Granulocytes Absolute 0.06 #; Lymphocytes # 0.9 10*3/uL (1.4-4.0); Mean Corpuscular HGB Conc 32.4 GM/DL (32-36); Mean Corpuscular Volume 84.6 FL (87-102); Mean Platelet Volume 10.7 FL (9.6-12.0); Monocytes % 1.5 % (1.7-12.7); Neutrophils % 87.6 % (38.7-73.9); Platelet Count 226 T/CUMM (130-400); Red Cell Distribution Width 14.2 % (9.3-17.3); White Blood Count 8.6 T/CUMM (4-12)
[2020-02-13 04:08] LABS: Alanine Aminotransferase 64 U/L (16-61); Albumin 0.8 G/DL (3.4-5.0); Alkaline Phosphatase 75 U/L (45-117); Aspartate Amino Transferase 170 U/L (0-37); Blood Urea Nitrogen 21 MG/DL (7-18); Calcium 8.2 MG/DL (8.5-10.1); Estimated Glom Filtration Rate 68 ML/MIN; Glucose 108 MG/DL (74-106); Osmolality,Calculated 286.1 MOS/KG (273-304); Total Protein 5.5 G/DL (6.4-8.3)
[2020-02-13] MEDS: MIDAZOLAM 100 MG in SODIUM CHLORIDE 0.9% 80 ML IV PRN (07:44)
[2020-02-13 07:48] LABS: Band Neutrophils 2 % (0-10); Lymphocytes 13 % (20-55); Platelet Estimate Normal; Segmented Neutrophils 85 % (50-85); Total Cells Counted 100
[2020-02-13 07:49] LABS: Hypochromasia 1+; Microcytosis 1+; Target Cells Slight
[2020-02-13] MEDS: MULTIVITAMIN (CENTRUM) TABLET PEG SCH (09:30)
[2020-02-13] MEDS: CHOLECALCIFEROL 1,000 UNIT TABLET PEG SCH (09:30)
[2020-02-13] MEDS: ASPIRIN CHEW 81 MG TABLET PO SCH (09:30)
[2020-02-13 10:51] LABS: ABG Base Excess 6.6 MMOL/L (-2.5-2.5); ABG HCO3 30.5 MMOL/L (20-26); ABG Oxygen Saturation 99.8 % (95-100); ABG PCO2 33.1 MM HG (35-48); ABG PH 7.549 (7.35-7.45); ABG TCO2 24.8 MMOL/L (23-27)
[2020-02-13] MEDS: NOREPINEPHRINE 8 MG in SODIUM CHLORIDE 0.9% 242 ML IV PRN ×2 (11:30→22:19)
[2020-02-13] MEDS: ENOXAPARIN 60 MG/0.6 ML SYRINGE SUBCUT SCH ×2 (11:56→22:02)
[2020-02-13] MEDS: LINEZOLID INJ 600 MG in PREMIX 1 EACH IV SCH ×2 (12:32→20:01)
[2020-02-13] MEDS: DEXT 5% NACL 0.9% KCL 20 MEQ 20 MEQ/1,000 ML BAG IV SCH (15:04)
[2020-02-14] MEDS: INSULIN LISPRO 100 UNIT/ML SUBCUT SCH ×4 (00:14→19:17)
[2020-02-14] MEDS: LINEZOLID INJ 600 MG in PREMIX 1 EACH IV SCH (08:34)
[2020-02-14] MEDS: MULTIVITAMIN (CENTRUM) TABLET PEG SCH (09:00)
[2020-02-14 09:18] LABS: Basophils % 0.1 % (0.0-0.8); Eosinophils # 0.1 10*3/uL (0.0-0.87); Eosinophils % 0.5 % (0.00-10.9); Hematocrit 27.7 VOL% (42.0-52.0); Hemoglobin 8.5 GM/DL (14.0-18.0); Immature Granulocytes % 0.7 %; Immature Granulocytes Absolute 0.07 #; Lymphocytes # 0.3 10*3/uL (1.4-4.0); Lymphocytes % 2.5 % (21.2-54.2); Mean Corpuscular HGB Conc 30.7 GM/DL (32-36); Mean Corpuscular Volume 86.8 FL (87-102); Mean Platelet Volume 11.5 FL (9.6-12.0); Monocytes % 0.8 % (1.7-12.7); Neutrophils % 95.4 % (38.7-73.9); Platelet Count 208 T/CUMM (130-400); Red Blood Count 3.19 MC/CUMM (3.8-5.5); Red Cell Distribution Width 14.5 % (9.3-17.3); White Blood Count 10.4 T/CUMM (4-12)
[2020-02-14] MEDS: ASPIRIN CHEW 81 MG TABLET PO SCH (09:30)
[2020-02-14] MEDS: CHOLECALCIFEROL 1,000 UNIT TABLET PEG SCH (09:30)
[2020-02-14 09:45] LABS: Calcium 7.6 MG/DL (8.5-10.1); Osmolality,Calculated 299.7 MOS/KG (273-304)
[2020-02-14] MEDS: DEXT 5% NACL 0.9% KCL 20 MEQ 20 MEQ/1,000 ML BAG IV SCH (10:38)
[2020-02-14] MEDS: PIPERACILLIN/TAZOBACTAM 3,375 MG in SODIUM CHLORIDE 0.9% 100 ML IV SCH ×2 (10:42→16:57)
[2020-02-14] MEDS: ENOXAPARIN 60 MG/0.6 ML SYRINGE SUBCUT SCH (12:00)
[2020-02-14 13:06] LABS: Lymphocytes 9 % (20-55); Platelet Estimate Normal; Segmented Neutrophils 91 % (50-85); Total Cells Counted 100
[2020-02-14 13:07] LABS: Anisocytosis 1+; Hypochromasia 2+; Microcytosis Slight
[2020-02-14] MEDS ORDERED: MORPHINE 4 MG/1 ML VIAL IV PRN (15:34)
[2020-02-14] MEDS ORDERED: LORazepam 2 MG/1 ML VIAL IV PRN (15:34)
[2020-02-14] MEDS: NOREPINEPHRINE 8 MG in SODIUM CHLORIDE 0.9% 242 ML IV PRN (16:41)
[2020-02-14] MEDS: MIDAZOLAM 100 MG in SODIUM CHLORIDE 0.9% 80 ML IV PRN (16:53)
[2020-02-14 17:04] VITALS: BP 67/25
== END 2020-02-15 11:50 | disposition expired | DRG 871 ==
LOC: N.ED 06:44 → SUATTDRO 08:27 → N.EDINP 08:27 → N.ICU 09:40 → N.2E 02-10 19:14 → N.ICU 02-12 04:53
PROVIDERS: ADMIT Internal Medicine; ATTEND Internal Medicine